=== PATIENT | male | born 1940 | race Caucasian/White ===

== ENCOUNTER 2017-07-14 15:08 | Emergency (ER) | payer OTHER, MEDICARE ==
[2017-07-14 15:20] VITALS: RESP 18; TEMP 97.9
[2017-07-14] MEDS ORDERED: LET GEL TOPICAL 1 EA SYR TP ONE (15:24)
--- NOTE | 2017-07-14 15:28 | EDPHY ---
H & P Time Seen by Provider: 07/14/17 15:11 HPI/ROS: This patient complains of a tick bite to the neck while in [place] or [place] this week. He explains that he spent 2 weeks looking at leaves on the [facility] and returned yesterday. He noticed a tick imbedded in his anterior neck and tried to remove it only 6 eating and removing a part of the insect. There is surrounding erythema to the affected area and mild discomfort. The patient is concerned about ailin Lyme disease he came in for evaluation. He drove himself here by private vehicle. He notes no exacerbating factors for the symptoms. ROS: No fevers or chills. HEENT: No complaints Neuro: No headache, numbness or tingling Pulmonary: No symptoms GI: The patient reports intermittent mild right groin pain inguinal canal region 1 to 2/10 in intensity with no clear eliciting or alleviating factors. It does not change with movement. He reports it is actually just inferior to the right inguinal canal. He has an appointment to see Dr. Brandyn Webb regarding this 1 week from today. : No testicle pain or swelling. No dysuria, frequency urgency. Integumentary: Erythema isolated to the area of insect bite with no other skin rash. 10 point ROS is otherwise negative Smoking Status: Never smoked Physical Exam: Physical Exam Vital signs are normal. General: No acute distress HEENT: Atraumatic. Neck: There is a small darkly pigmented foreign body presumably part of a tick imbedded in the right anterior neck near the larynx with surrounding erythema approximately 3 cm in diameter. No fluctuance. Neck is supple. There is no significant lymphadenopathy associated with this. Eyes: Pupils equal and react to light. Extraocular motions are intact. Lungs: No respiratory distress. Cardiac: Brisk capillary refill is intact throughout. Abdomen: Soft, nontender, clean dry intact right inguinal surgical scar and suprapubic scar. Appreciate no evidence of inguinal hernia with Valsalva maneuver. There is no lower belly tenderness. Patient points to the proximal right thigh just inferior to the inguinal canal as the source of pain there is no erythema to this area or skin changes. No inguinal lymphadenopathy is appreciated. : No testicular tenderness or swelling. No epididymal tenderness or swelling. Penis is circumcised with no urethral discharge or lesions. Skin: No rash or pallor. Extremities: No at word right hip tenderness. No for shortening of the right leg. The patient can do a knee bend on the right leg bearing is full weight without change in the groin pain. Neuro: Alert and oriented x3 with no sensorimotor deficits. Initial differential diagnosis: 1. Tick bite, localized wound infection, doubt early Lyme disease. The musculoskeletal strain for groin pain verses early inguinal hernia verses, femoral hernia, hip source of pain. Constitutional: Initial Vital Signs Temperature (C) 36.6 C 07/14/17 15:16 Heart Rate 67 07/14/17 15:16 Respiratory Rate 18 07/14/17 15:16 Blood Pressure 157/81 H 07/14/17 15:16 O2 Sat (%) 95 07/14/17 15:16 O2 Delivery Mode Room Air Allergies/Adverse Reactions: No Known Allergies Allergy (Unverified 07/14/17 15:15) Home Medications: Medication Instructions Recorded Aspirin 81mg (*) 07/14/17 Crestor 07/14/17 Doxycycline Hyclate [Vibramycin 100 mg PO BID #20 cap 07/14/17 100 MG (*)] Levothyroxine 07/14/17 Nexium 07/14/17 MDM/Departure - MDM Procedures: Removal of tick from neck (F.B. removal from skin) After verbal consent using let solution anesthesia with good effect I cleaned the wound with baby shampoo and warm water and then using sterile technique used a 11. Blade scalpel and splinter forceps with magnifying loops to carefully and meticulously remove the tick. Most of the insect came out in 1 piece, but a pincher was initially left behind which I debora carefully dissected free from surrounding tissue and removed. Patient tolerated this well. There is no significant blood loss. Procedures performed by myself. There were no complications. Our tech then applied bacitracin and bandage. Medications Given: Discontinued Medications Tetracaine/Epinephrine/Lidocaine (Let Gel Topical) 1 ea TP EDNOW ONE Stop: 07/14/17 15:25 Last Admin: 07/14/17 15:28 Dose: 1 ea ED Course/Re-evaluation: Discussion: Patient has a tick bite of unknown duration sustained in the [facility] in [facility] for Lyme disease with no systemic symptoms at this time but evidence of his superficial and localized wound infection without abscess. I think it is early enough in his course that even if he had early Lyme I think a test for line would be low yield at this point. I will treat this with doxycycline as this will cover localized wound infection staff for strep & would also tx early Lyme. I counseled patient regarding this as well as local wound care. The cause of his groin pain is unclear. Clinically I appreciate no evidence of inguinal hernia, epididymitis or orchitis. A mild femoral hernia is an unusual but possible diagnosis related to the area affected-proximal thigh just inferior to the inguinal canal. It does not seem to worsen with movement however. No worsening with Valsalva or other remarkable findings. The patient can do a deep knee bend bearing full weight on the affected leg without change in his pain,so I do doubt a hip source of pain. Patient will follow up with [facility] and home-general surgeon regarding this ongoing mild groin discomfort. - Depart Disposition: Home, Routine, Self-Care Clinical Impression: Wound infection, Tick bite with subsequent removal of tick Tick bite of neck Qualifiers: Encounter type: initial encounter Qualified Code(s): S10.96XA - Insect bite of unspecified part of neck, initial encounter Condition: Good Instructions: Wound Infection (ED), Insect Bite or Sting (ED) Additional Instructions: Diagnosis: Tick bite bite to neck 2. Foreign body removal 3. Wound infection 4. Groin pain Plan: Clean wound daily with warm soapy water Bandage for the next few days Doxycycline antibiotic Take probiotic or yogurt while on doxycycline Follow up with Dr. Webb regarding your groin pain Wear sunscreen while taking doxycycline as it makes you more prone to sunburn Return for any significant worsening despite treatment plan Prescriptions: Doxycycline Hyclate [Vibramycin 100 MG (*)] 100 mg PO BID #20 cap Referrals: Kamlesh Gillis MD [Primary Care Provider] - As per Instructions
[2017-07-14 17:05] VITALS: BP 129/77; PULSE 61; O2SAT 96
== END 2017-07-14 16:39 | disposition home or self-care (01) ==
LOC: CED 15:08
PROC: 0JC40ZZ Extirpation of Matter from Right Neck Subcutaneous Tissue and Fascia, Open Approach (ICD-10-PCS; principal; 2017-07-14)
DX: S10.96XA Insect bite of unspecified part of neck, initial encounter (principal); L08.9 Local infection of the skin and subcutaneous tissue, unspecified; Z79.82 Long term (current) use of aspirin; W57.XXXA Bitten or stung by nonvenomous insect and other nonvenomous arthropods, initial encounter

== ENCOUNTER → 2017-09-03 | Outpatient (CLI) | payer OTHER, MEDICARE ==
[~2017-09-03] MED LIST: IOPAMIDOL (ISOVUE-300) 100 ML BTL ONE
== END ==
LOC: CIMAGING 14:17
PROVIDERS: ATTEND Surgery
DX: R10.31 Right lower quadrant pain (principal); M51.36 Other intervertebral disc degeneration, lumbar region
CPT/HCPCS: 74177; Q9967

== ENCOUNTER 2018-03-01 20:28 | Observation (INO) | payer OTHER, MEDICARE ==
--- NOTE | 2018-03-01 20:54 | CPEKG ---
Heart Rate: 62 RR Interval: 968 P-R Interval: 220 QRSD Interval: 104 QT Interval: 440 QTC Interval: 447 P Brod[place]: 74 QRS Brod[place]: -59 T Wave Bro[place]: 52 EKG Severity - ABNORMAL ECG - EKG Impression: SINUS RHYTHM EKG Impression: FIRST DEGREE AV BLOCK EKG Impression: LAD, CONSIDER LEFT ANTERIOR FASCICULAR BLOCK EKG Impression: ABNRM R PROG, CONSIDER ASMI OR LEAD PLACEMENT Electronically Signed By: Kamlesh Lujan 02-Mar-2018 06:54:33
--- NOTE | 2018-03-01 20:59 | EDPHY ---
H & P Stated Complaint: left shoulder pain that radiates down his arm Time Seen by Provider: 03/01/18 20:59 HPI/ROS: HPI CHIEF COMPLAINT: Left arm pain and left posterior shoulder pain. HISTORY OF PRESENT ILLNESS: Patient is a 77-year-old male, he has a history of coronary artery disease with multiple stents, he presents emergency room left- sided arm pain and left posterior scapula pain. Patient states this started around 3:00 p.m. He noticed some pain in his left scapula. Denies any shortness of breath denies pleuritic pain. States the pain radiated down his left arm to the left posterior aspect of his arm in between his shoulder and elbow. That is currently present at this time he denies any chest pain. Shoulder pain has resolved. Past Medical History: Coronary artery disease with 2 stents. Hyperlipidemia. Past Surgical History: Denies significant surgical history except for coronary disease with 2 stents Social History: Denies daily use of drugs alcohol tobacco. Lives locally. Family History: Noncontributory ROS REVIEW OF SYSTEMS: A comprehensive 10 point review of systems is otherwise negative aside from elements mentioned in the history of present illness. Exam Constitutional nontoxic appearing, triage nursing summary reviewed, vital signs reviewed, awake/alert. Eyes normal conjunctivae and sclera, EOMI, PERRLA. HENT normal inspection, atraumatic, moist mucus membranes, no epistaxis, neck supple/ no meningismus, no raccoon eyes. Respiratory clear to auscultation bilaterally, normal breath sounds, no respiratory distress, no wheezing. Cardiovascular rate normal, regular rhythm, no murmur, no edema, distal pulses normal. Gastrointestinal soft, non-tender, no rebound, no guarding, normal bowel sounds, no distension, no pulsatile mass. Genitourinary no CVA tenderness. Musculoskeletal no midline vertebral tenderness, full range of motion, no calf swelling, no tenderness of extremities, no meningismus, good pulses, neurovascularly intact. Skin pink, warm, & dry, no rash, skin atraumatic. Neurologic awake, alert and oriented x 3, AAOx3, moves all 4 extremities equally, motor intact, sensory intact, CN II-XII intact, normal cerebellar, normal vision, normal speech. Psychiatric normal mood/affect. Heme/Lymph/Immune no lymphadenopathy. Differential diagnosis includes but is not limited to: ACS, atypical chest pain , pneumothorax, pneumonia, pulmonary embolism, aortic dissection, congestive heart failure, tumor, musculoskeletal pain, esophageal pain, GERD, peptic ulcer disease, pancreatitis Medical Decision Making: Plan for this patient IV establishment blood draw, check troponin, chest x-ray, EKG rule out acute coronary syndrome full-dose aspirin, labs, and re-evaluate. Re-evaluation: EKG interpretation by me on record in [employer] system. Impression time of EKG 2051, this is sinus rhythm rate of 62 first-degree AV block present VT interval 220, no ST elevation no ST depression no significant T-wave abnormalities unremarkable nonischemic EKG. CT angiogram of the chest shows no evidence of PE or aortic dissection. It does show coronary artery disease. Point care troponin is negative. 2300: Patient is chest pain-free. Resting comfortably. CT angiogram shows no evidence of acute disease process. Tortuous aorta noted. No dissection no PE. Point care troponin negative. D-dimer was positive. EKG nonischemic Given his left shoulder pain and left arm pain and cardiac risk factors including severe coronary artery disease patient need to be admitted to rule out. I did speak with the hospitalist service Dr. Lisa Who agrees to admit. Source: Patient - Personal History Current Tetanus/Diphtheria Vaccine: Yes Current Tetanus Diphtheria and Acellular Pertussis (TDAP): Yes - Medical/Surgical History Hx Asthma: No Hx Chronic Respiratory Disease: No Hx Diabetes: No Hx Cardiac Disease: Yes Hx Renal Disease: No Hx Cirrhosis: No Hx Alcoholism: No Hx HIV/AIDS: No Hx Splenectomy or Spleen Trauma: No Other PMH: HYPOTHYROIDISM, HIGH CHOLESTROL, REFLUX, B KNEE REPLACEMENTS, PROSTATE SURG, HERNIA REPAIR, 2 heart stents - Social History Smoking Status: Never smoked Constitutional: Initial Vital Signs Temperature (C) 36.7 C 03/01/18 20:30 Heart Rate 60 03/01/18 20:30 Respiratory Rate 16 03/01/18 20:30 Blood Pressure 165/87 H 03/01/18 20:30 O2 Sat (%) 96 03/01/18 20:30 O2 Delivery Mode Room Air Allergies/Adverse Reactions: No Known Allergies Allergy (Verified 03/01/18 20:33) Home Medications: Medication Instructions Recorded Aspirin [Aspirin 81mg (*)] 81 mg PO DAILY 07/14/17 Esomeprazole Magnesium [Nexium] 20 mg PO DAILY 07/14/17 Levothyroxine [Synthroid 88 mcg 88 mcg PO DAILY06 07/14/17 (*)] Rosuvastatin Calcium [Crestor 20mg 20 mg PO HS 07/14/17 (*)] Ezetimibe [Zetia 10 MG (*)] 10 mg PO HS 03/01/18 Cholecalciferol Vit D3 [Vitamin D3 1,000 units PO Q2D 03/02/18 (*)] Cyanocobalamin [Vitamin B12 (*)] 1,000 mcg PO Q2D 03/02/18 Medical Decision Making - Data Points Laboratory Results: Laboratory Results 03/01/18 21:21 03/01/18 21:21 Medications Given: Discontinued Medications Aspirin (Aspirin) 324 mg PO EDNOW ONE Stop: 03/01/18 21:06 Last Admin: 03/01/18 21:30 Dose: 324 mg Aspirin (Aspirin) 81 mg PO DAILY [facility] Stop: 08/29/18 12:14 Last Admin: 03/02/18 12:49 Dose: 81 mg Enoxaparin Sodium (Lovenox) 40 mg SC DAILY YUMIKO Stop: 08/29/18 08:59 Last Admin: 03/02/18 08:11 Dose: 40 mg Sodium Chloride (Ns) 1,000 mls @ 0 mls/hr IV EDNOW ONE; Wide Open PRN Reason: Protocol Stop: 03/01/18 21:06 Last Admin: 03/01/18 21:31 Dose: 1,000 mls Levothyroxine Sodium (Synthroid) 88 mcg PO DAILY06 [facility] Stop: 08/29/18 12:14 Last Admin: 03/02/18 12:49 Dose: 88 mcg Pantoprazole Sodium (Protonix) 40 mg PO DAILY [facility] Stop: 08/29/18 12:29 Last Admin: 03/02/18 12:49 Dose: 40 mg Departure - Departure Disposition: [facility] Inpatient Acute Clinical Impression: Chest pain Qualifiers: Chest pain type: unspecified Qualified Code(s): R07.9 - Chest pain, unspecified Condition: Fair
[2018-03-01] MEDS ORDERED: NS 1,000 ML IV ONE (21:05)
[2018-03-01] MEDS ORDERED: ASPIRIN 81 MG CHEWABLE TAB PO ONE (21:05)
[2018-03-01 21:31] LABS: PLATELET COUNT 160 10^3/uL (150-400)
[2018-03-01 21:38] LABS: INR 1.21 (0.83-1.16); PROTIME(PATIENT) 15.5 SEC (12.0-15.0)
[2018-03-01] MEDS ORDERED: IOPAMIDOL (ISOVUE 370) 100 ML BTL IV ONE (22:29)
[2018-03-01] MEDS ORDERED: ONDANSETRON 4 MG/2 ML VIAL IVP PRN (23:40)
[2018-03-01] MEDS ORDERED: ONDANSETRON DISINTEGRATING 4 MG TAB PO PRN (23:40)
[2018-03-01] MEDS ORDERED: ACETAMINOPHEN 325 MG TAB PO PRN (23:40)
--- NOTE | 2018-03-02 02:28 | PDGENHP ---
History and Physical - Chief Complaint L shoulder/arm pain - History of Present Illness 77 yo M w/ hx of CAD s/p LAZARO x2 in 2006 presents with left shoulder and arm pain. Patient tells me that he has been working on getting a rental unit ready for rental. He was working on this today when he noted pain behind his L shoulder. This progressed to then involve his L arm. The pain lasted a total of 5 hours so he came to the emergency department. Currently he is chest pain free and denies other complaints. He tells me his last stress test was in 2015 and was normal. History Information - Allergies/Home Medication List Allergies/Adverse Reactions: No Known Allergies Allergy (Verified 03/01/18 20:33) Home Medications: Aspirin 81mg (*) 07/14/17 [Last Taken Unknown] Crestor 07/14/17 [Last Taken Unknown] Levothyroxine 07/14/17 [Last Taken Unknown] Nexium 07/14/17 [Last Taken Unknown] Ezetimibe-Simvastatin 10-10 mg 03/01/18 [Last Taken Unknown] I have personally reviewed and updated: family history, medical history - Past Medical History coronary artery disease, GERD, hyperlipidemia Additional medical history: Hypothyroid - Surgical History Reports: coronary stent Additional surgical history: Meniscus repair. Prostatectomy - Family History Positive for: hypertension - Social History Smoking Status: Never smoked Review of Systems Review of Systems: ROS: 10pt was reviewed & negative except for what was stated in HPI & below Physical Exam Physical Exam: Temp Pulse Resp BP Pulse Ox 36.7 C 61 16 167/78 H 99 03/01/18 23:48 03/01/18 23:48 03/01/18 23:48 03/01/18 23:48 03/01/18 23:48 Constitutional: no apparent distress, not in pain Eyes: PERRL, EOMI Ears, Nose, Mouth, Throat: moist mucous membranes, no oral mucosal ulcers Cardiovascular: regular rate and rhythym, no murmur, rub, or gallop Respiratory: no respiratory distress, clear to auscultation Gastrointestinal: normoactive bowel sounds, soft, non-tender abdomen Skin: warm, normal color Musculoskeletal: full muscle strength, no muscle tenderness Neurologic: AAOx3, CN II-XII Intact Psychiatric: interacting appropriately, not anxious Lab Data & Imaging Review 03/01/18 21:21 03/01/18 21:21 WBC 3.81 10^3/uL (3.80-9.50) 03/01/18 21:21 RBC 3.74 10^6/uL (4.40-6.38) L 03/01/18 21:21 Hgb 12.2 g/dL (13.7-17.5) L 03/01/18 21:21 Hct 35.5 % (40.0-51.0) L 03/01/18 21:21 MCV 94.9 fL (81.5-99.8) 03/01/18 21:21 MCH 32.6 pg (27.9-34.1) 03/01/18 21: MCHC 34.4 g/dL (32.4-36.7) 03/01/18 21: RDW 12.7 % (11.5-15.2) 03/01/18 21:21 Plt Count 160 10^3/uL (150-400) 03/01/18 21:21 MPV 10.1 fL (8.7-11.7) 03/01/18 21:21 Neut % (Auto) 48.9 % (39.3-74.2) 03/01/18 21:21 Lymph % (Auto) 36.2 % (15.0-45.0) 03/01/18 21: [place] % (Auto) 11.5 % (4.5-13.0) 03/01/18 21:21 Eos % (Auto) 2.9 % (0.6-7.6) 03/01/18 21:21 Baso % (Auto) 0.5 % (0.3-1.7) 03/01/18 21:21 Nucleat RBC Rel Count 0.0 % (0.0-0.2) 03/01/18 21:21 Absolute Neuts (auto) 1.86 10^3/uL (1.70-6.50) 03/01/18 21:21 Absolute Lymphs (auto) 1.38 10^3/uL (1.00-3.00) 03/01/18 21:21 Absolute Monos (auto) 0.44 10^3/uL (0.30-0.80) 03/01/18 21:21 Absolute Eos (auto) 0.11 10^3/uL (0.03-0.40) 03/01/18 21:21 Absolute Basos (auto) 0.02 10^3/uL (0.02-0.10) 03/01/18 21:21 Absolute Nucleated RBC 0.00 10^3/uL (0-0.01) 03/01/18 21:21 Immature Gran % 0.0 % (0.0-1.1) 03/01/18 21: Immature Gran # 0.00 10^3/uL (0.00-0.10) 03/01/18 21:21 PT 15.5 SEC (12.0-15.0) H 03/01/18 21:21 INR 1.21 (0.83-1.16) H 03/01/18 21:21 APTT 34.5 SEC (23.0-38.0) 03/01/18 21:21 D-Dimer 1.44 ug/mLFEU (0.00-0.50) H 03/01/18 21:21 Sodium 142 mEq/L (135-145) 03/01/18 21:21 Potassium 3.9 mEq/L (3.3-5.0) 03/01/18 21:21 Chloride 107 mEq/L (97-110) 03/01/18 21:21 Carbon Dioxide 25 mEq/l (22-31) 03/01/18 21:21 Anion Gap 10 mEq/L (8-16) 03/01/18 21:21 BUN 18 mg/dL (7-23) 03/01/18 21:21 Creatinine 0.8 mg/dL (0.7-1.3) 03/01/18 21:21 Estimated GFR > 60 03/01/18 21:21 Glucose 155 mg/dL (70-100) H 03/01/18 21:21 Calcium 9.3 mg/dL (8.5-10.4) 03/01/18 21: Magnesium 2.0 mg/dL (1.6-2.3) 03/01/18 21:21 Total Bilirubin 0.3 mg/dL (0.1-1.4) 03/01/18 21:21 Conjugated Bilirubin 0.2 mg/dL (0.0-0.5) 03/01/18 21:21 Unconjugated Bilirubin 0.1 mg/dL (0.0-1.1) 03/01/18 21:21 AST 25 IU/L (17-59) 03/01/18 21:21 ALT 31 IU/L (21-72) 03/01/18 21:21 Alkaline Phosphatase 32 IU/L (38-126) L 03/01/18 21:21 POC Troponin I 0.01 ng/mL (0.00-0.08) 03/01/18 22:48 NT-Pro-B Natriuret Pep 88 pg/mL (0-450) 03/01/18 21:21 Total Protein 6.5 g/dL (6.3-8.2) 03/01/18 21:21 Albumin 3.9 g/dL (3.5-5.0) 03/01/18 21:21 Lipase 115 IU/L (23-300) 03/01/18 21:21 Imaging Review: Imaging Impressions Chest X-Ray 03/01/18 21:05 Impression: Tortuous ectatic aorta. Findings discussed with Kamlesh Lujan MD 03/01/2018 at 21:39. Chest/Thorax CTA 03/01/18 21:47 Impression: 1. No visible pulmonary embolus or dissection. 2. Extensive coronary artery atherosclerosis, particularly in the LAD. 3. Normal caliber aorta. 4. Additional findings as above. Findings discussed with Kamlesh Lujan MD 03/01/2018 at 22:55. Visualized and Interpreted EKG results: Yes EKG Interpretation: Positive for: normal sinsus rhythm Assessment & Plan Assessment: 77 yo M w/ hx of CAD s/p LAZARO x2 in 2006 presents with L shoulder/arm pain. Plan: 1. L shoulder/arm pain - Could be anginal equivalent; pain lasted for 5 hours but was not related to exertion/rest in a classic manner. His initial work up has been unremarkable including negative troponin, non-ischemic ECG(personally interpreted) and CTA notable only for coronary atherosclerosis. - Admit to PCU for observation - Monitor on telemetry, trend cardiac enzymes - Will order treadmill stress test for further evaluation (not on beta amber) - Discussed case with Dr. Santos 2. CAD - S/p LAZARO x2 in 2006 at [facility]. He states his last stress test in 2015 was normal. He is compliant with ASA and multiple anti-lipid medications. - Continue home medications 3. GERD - Continue PPI 4. HLD - On multiple medications per his parent educator 5. Hypothyroid - Continue LTX Diet - NPO pending risk stratification Code - Full Ppx - LMWH Dispo - Admit under observation status
[2018-03-02 03:50] LABS: PLATELET COUNT 148 10^3/uL (150-400)
[2018-03-02] MEDS ORDERED: ENOXAPARIN 40 MG/0.4 ML SYR SC SCH (09:00)
--- NOTE | 2018-03-02 10:31 | CPR ---
[f rep st] NONINVASIVE CARDIAC PROCEDURE REPORT DATE OF PROCEDURE: 03/02/2018 PROCEDURE: Exercise treadmill test. INDICATION: The patient is a 77-year-old male with a history of coronary artery disease status post stenting remotely in 2006. Yesterday, he developed sharp back pain while doing house work. This was brief and was not associated with any other symptoms. A few hours later, he developed left arm disc omfort which was located from his shoulder to his elbow. This persisted for 2 hours and therefore, loretta araujo presented to the hospital. He denied any shortness of breath, chest discomfort, nausea or diaphore sis associated with the arm discomfort. He is a very active individual, walking 2-3 hours multiple t imes a week without any associated symptoms. PROCEDURE IN DETAIL: Consent was obtained and the patient was placed on continuous telemetry. His r esting EKG reveals sinus bradycardia with a heart rate of 53. There are no ST-T wave changes to sugg est ischemia. The patient walked on the treadmill for 9 minutes without any associated symptoms. He remained in normal sinus rhythm throughout the exercise portion of the study. There were no ST-T wa ve changes to suggest ischemia. He reached a target heart rate of 142 beats per minute which was 99% of his age-predicted maximum heart rate. In the recovery phase he did have rare unifocal PVCs. His blood pressure at rest was 140/80, peaked at 182/78. His blood pressure returned to baseline within 6 minutes of recovery. PLAN: The patient has a [place] treadmill score of 9 which is considered low risk. If he has recurren t discomfort, consider a more sophisticated study. Copy requested to: David Wadsworth MD [facility] /[id number]/MODL
[2018-03-02 11:21] VITALS: BP 120/69
--- NOTE | 2018-03-02 11:54 | ASMTCMCOM ---
CM Note CM Note Notes: 03/01/2018 Case Management Note Met pt during rounds this morning. Pt admitted with a history of CAD for chest pain and subsequent work up. There are no PT or OT evals ordered at this time. Pt is ambulating without difficulty. There are no identified d/c needs from case management. Pt is independent in ADL's prior to admission. Case Management d/c poc: anticipating independent with follow up as directed. Case Management available if needs change. Date Signed: 03/02/2018 11:54 AM Electronically Signed By:Lisa De La Rosa RN
--- NOTE | 2018-03-02 11:57 | ASMTCMCOM ---
CM Note CM Note Notes: 03/02/2018 Case Management Note Pt transferred to 2W. PT is recommending home with cardiac rehab. Case Management d/c poc: anticipating independent with follow up as directed. Case Management to follow. Date Signed: 03/02/2018 11:57 AM Electronically Signed By:Lisa De La Rosa RN
--- NOTE | 2018-03-02 11:59 | ASMTCMCOM ---
CM Note CM Note Notes: 03/02/2018 Case Management Note Disregard second note, incorrect pt. Correct note for Mynor Acosta is as follows: 03/02/2018 Case Management Note Met pt during rounds this morning. Pt admitted with a history of CAD for chest pain and subsequent work up. There are no PT or OT evals ordered at this time. Pt is ambulating without difficulty. There are no identified d/c needs from case management. Pt is independent in ADL's prior to admission. Case Management d/c poc: anticipating independent with follow up as directed. Case Management available if needs change. Date Signed: 03/02/2018 11:59 AM Electronically Signed By:Lisa De La Rosa RN
[2018-03-02] MEDS ORDERED: ASPIRIN 81 MG CHEWABLE TAB PO SCH (12:15)
[2018-03-02] MEDS ORDERED: LEVOTHYROXINE 88 MCG TAB PO SCH (12:15)
[2018-03-02] MEDS ORDERED: PANTOPRAZOLE SODIUM 40 MG TAB PO SCH (12:30)
--- NOTE | 2018-03-02 13:12 | HOSPPROG ---
Hospitalist Progress Note Assessment/Plan: 77 yo m w CP neg stress see dc summary Subjective: neg stress Objective: Vital Signs Temp Pulse Resp BP Pulse Ox 36.7 C 55 L 12 120/69 95 03/02/18 11:21 03/02/18 11:21 03/02/18 11:21 03/02/18 11:21 03/02/18 11:21 Laboratory Results 03/02/18 03:16 03/02/18 03:16 03/01/18 03/02/18 03/03/18 05:59 05:59 05:59 Intake Total 1425 Balance 1425 PT 15.5 SEC (12.0-15.0) H 03/01/18 21:21 INR 1.21 (0.83-1.16) H 03/01/18 21:21 - Physical Exam Constitutional: no apparent distress, appears nourished Eyes: PERRL, anicteric sclera Ears, Nose, Mouth, Throat: moist mucous membranes, hearing normal Cardiovascular: regular rate and rhythym, no murmur, rub, or gallop Respiratory: no respiratory distress, no rales or rhonchi Gastrointestinal: normoactive bowel sounds, soft, non-tender abdomen Genitourinary: no bladder fullness, No boyer in urethra Skin: warm, normal color Musculoskeletal: full muscle strength Neurologic: AAOx3 ICD10 Worksheet Patient Problems: Problems Problem Status Onset Chest pain Acute
--- NOTE | 2018-03-02 13:32 | GDS ---
[f rep st] DISCHARGE SUMMARY DISCHARGE DIAGNOSES: 1. Chest pain. 2. History of coronary artery disease. Please see admission history and physical by Dr. Titus Lisa. The patient presented with left scapular and arm pain. He has history of CAD with a stent. He did not have anginal symptoms. At that time, he had a high calcium score. His workup included a negative CTA for pulmonary embolism. He had a stress test going 9 minutes on a Natan protocol without ST or T-wave changes. He is discharged home. Notably, his discharge medications include aspirin and a statin. /[id number]/MODL MTDD
--- NOTE | 2018-03-02 13:53 | ASDISCHSUM ---
Discharge Information Plan Status:Home with No Needs Medically Cleared to Leave:03/02/2018 Discharge Date:03/02/2018 CM D/C Disposition:Home, Routine, Self-Care ADT D/C Disposition: Projected Discharge Date:03/02/2018 Transportation at D/C: Discharge Delay Reason: Follow-Up Date:03/02/2018 Discharge Slot: Final Diagnosis: Placement Information Patient Contact Information Contact Name:ROSLYN Relationship: Address:[address] Work Phone: City:[place] Alternate Phone: State/Zip Code:[place] [address] Email: Financial Information Financial Class:Medicare Primary Plan Desc:MEDICARE OUTPATIENT Primary Plan Number:[id number] Secondary Plan Desc:[employer]/M[employer] SUPPLEMENT Secondary Plan Number:[id number] Assessment Information LACE LACE Length of stay for Answers: Less than 1 day current admission Acuity / Level of Answers: No Care: Did the patient have an inpatient admission? Comorbidities - select Answers: Coronary Artery Disease all that apply Other Notes: GERD; HLD # of Emergency department Answers: 1-2 visits in the last 6 months Score: 4 Date Signed: 03/02/2018 01:50 PM Electronically Signed By:Lisa De La Rosa RN [facility] CM Progress Note CM Note CM Note Notes: 03/01/2018 Case Management Note Met pt during rounds this morning. Pt admitted with a history of CAD for chest pain and subsequent work up. There are no PT or OT evals ordered at this time. Pt is ambulating without difficulty. There are no identified d/c needs from case management. Pt is independent in ADL's prior to admission. Case Management d/c poc: anticipating independent with follow up as directed. Case Management available if needs change. Date Signed: 03/02/2018 11:54 AM Electronically Signed By:Lisa De La Rosa RN [facility] CM Progress Note CM Note CM Note Notes: 03/02/2018 Case Management Note Pt transferred to . PT is recommending home with cardiac rehab. Case Management d/c poc: anticipating independent with follow up as directed. Case Management to follow. Date Signed: 03/02/2018 11:57 AM Electronically Signed By:Lisa De La Rosa RN [facility] CM Progress Note CM Note CM Note Notes: 03/02/2018 Case Management Note Disregard second note, incorrect pt. Correct note for Mynor Acosta is as follows: 03/02/2018 Case Management Note Met pt during rounds this morning. Pt admitted with a history of CAD for chest pain and subsequent work up. There are no PT or OT evals ordered at this time. Pt is ambulating without difficulty. There are no identified d/c needs from case management. Pt is independent in ADL's prior to admission. Case Management d/c poc: anticipating independent with follow up as directed. Case Management available if needs change. Date Signed: 03/02/2018 11:59 AM Electronically Signed By:Lisa De La Rosa RN Case Management Discharge Plan Note Case Management Discharge Discharge Order Complete? Answers: Yes Patient to Obtain Answers: Independently Medications Discharge Comments Notes: 03/02/2018 Case Management Note Pt to d/c independent with follow up as directed. Date Signed: 03/02/2018 01:51 PM Electronically Signed By:Lisa De La Rosa RN Intervention Information Intervention Type:*IAN-Signed Date of Service:03/02/2018 09:21 AM Patient Type:Observation Staff Member:Kerry Bales Hours: Discipline: Severity: Comment:
[2018-03-02] MEDS ORDERED: EZETIMIBE 10 MG TAB PO SCH (21:00)
[2018-03-02] MEDS ORDERED: ROSUVASTATIN CALCIUM 20 MG TAB PO SCH (21:00)
[2018-03-04] MEDS ORDERED: CYANO/VITAMIN B12 1000 MCG TAB PO SCH (09:00)
[2018-03-04] MEDS ORDERED: CHOLECALCIFEROL VIT D3 1,000 UNITS TAB PO SCH (09:00)
== END 2018-03-02 15:37 | disposition home or self-care (01) ==
LOC: F2W 23:40
PROVIDERS: ADMIT Student in an Organized Health Care Education/Training Program; ATTEND Student in an Organized Health Care Education/Training Program
DX: M79.622 Pain in left upper arm (principal); I25.10 Atherosclerotic heart disease of native coronary artery without angina pectoris; E78.5 Hyperlipidemia, unspecified; Z95.1 Presence of aortocoronary bypass graft
CPT/HCPCS: 71045; 71275; 93005; 93017; 96360; 99285; G0378; J1650; Q9967; 84484-PO